=== PATIENT | female | born 1935 | race Caucasian/White ===

== ENCOUNTER 2018-01-24 21:33 | Emergency (ER) | payer MEDICARE, BC ==
[2018-01-24] MEDS ORDERED: SUCCINYLCHOLINE CHLORIDE 20 MG/ML SOL IV ONE ×2 (21:48→23:21)
[2018-01-24] MEDS ORDERED: ETOMIDATE 2 MG/ML SOL IV ONE ×2 (21:48→23:21)
[2018-01-24] MEDS ORDERED: SODIUM CHLORIDE 0.9% 1000ML 1,000 ML IV ONE (22:00)
[2018-01-24] MEDS ORDERED: MIDAZOLAM 2 MG/2 ML SOL ONE (22:07)
[2018-01-24] MEDS ORDERED: ROCURONIUM BROMIDE 10 MG/ML SOL IV ONE ×2 (22:09→23:21)
[2018-01-24] MEDS ORDERED: ROCURONIUM BROMIDE 10 MG/ML SOL IV PRN (22:15)
[2018-01-24 22:33] LABS: BASOPHILS % (AUTO) 1 % (0-3); EOSINOPHILS % (AUTO) 0 % (0-9); HEMATOCRIT 38 % (35-47); HEMOGLOBIN 12.6 gm/dl (12.0-15.5); LYMPHOCYTES % (AUTO) 10.2 % (10-50); MEAN CORPUSCULAR HEMOGLOBIN 30.6 pg (27.0-32.0); MEAN CORPUSCULAR HGB CONC 33.6 gm/dl (32.0-36.0); MEAN CORPUSCULAR VOLUME 91 fL (81-99); MONOCYTES % (AUTO) 5.5 % (0-12); NEUTROPHILS % (AUTO) 83.5 % (37-80)
[2018-01-24 22:34] LABS: INR 1.1 (0.86-1.12)
[2018-01-24 22:35] LABS: ALT 21 IU/L (14-63); AST 21 IU/L (15-37); BILIRUBIN,TOTAL 0.3 mg/dl (0.2-1.0); BLOOD UREA NITROGEN 14 mg/dl (7-18); CALCIUM 8.6 mg/dl (8.5-10.1); CHLORIDE 100 mMol/L (98-107); CREATININE 1.16 mg/dl (0.60-1.00); GLOM FILT RATE 45 mL/min (>60); GLUCOSE 185 mg/dl (74-106); POTASSIUM 3.3 mMol/L (3.5-5.1); SODIUM 137 mMol/L (136-145); TOTAL PROTEIN 6.9 gm/dl (6.4-8.2)
[2018-01-24 22:36] LABS: ALBUMIN 3.3 gm/dl (3.4-5.0); ALKALINE PHOSPHATASE 78 IU/L (46-116); TROP I < 0.017 ng/ml (0.000-0.056)
[2018-01-24] MEDS ORDERED: MIDAZOLAM 2 MG/2 ML SOL IV ONE (23:21)
[2018-01-25 00:11] VITALS: BP 164/73; PULSE 101; RESP 17; O2SAT 100
== END 2018-01-24 22:45 | disposition short-term general hospital (02) | DRG 81 ==
LOC: ED 21:33
DX: R40.1 Stupor (principal); R56.9 Unspecified convulsions
CPT/HCPCS: 31500; 70450; 71045; 80053; 84484; 85025; 85610; 85730; 93005; 99291; J0330; J2250; A9270-GY; J3490

== ENCOUNTER 2018-08-27 13:25 | Emergency (ER) | payer OTHER, MEDICARE, BC ==
[2018-08-27] MEDS ORDERED: SODIUM CHLORIDE 0.9% 1000ML 1,000 ML IV ONE (13:37)
[2018-08-27] MEDS ORDERED: HYDROMORPHONE HCL 2 MG/ML SOL IV ONE (13:38)
[2018-08-27] MEDS ORDERED: HYDROMORPHONE 1 MG/ML SYRINGE ONE (13:44)
[2018-08-27 13:58] LABS: BASOPHILS % (AUTO) 1 % (0-3); EOSINOPHILS % (AUTO) 2 % (0-9); HEMATOCRIT 37 % (35-47); HEMOGLOBIN 11.9 gm/dl (12.0-15.5); LYMPHOCYTES % (AUTO) 32.6 % (10-50); MEAN CORPUSCULAR HEMOGLOBIN 29.8 pg (27.0-32.0); MEAN CORPUSCULAR HGB CONC 32.5 gm/dl (32.0-36.0); MEAN CORPUSCULAR VOLUME 92 fL (81-99); MONOCYTES % (AUTO) 8.1 % (0-12); NEUTROPHILS % (AUTO) 56.6 % (37-80)
[2018-08-27 14:03] LABS: CALCIUM 8.7 mg/dl (8.5-10.1); CARBON DIOXIDE 29.4 mEq/L (21-32); CREATININE 0.97 mg/dl (0.60-1.00); POTASSIUM 3.4 mMol/L (3.5-5.1)
[2018-08-27 14:04] LABS: INR 1.02 (0.86-1.12)
[2018-08-27] MEDS ORDERED: ONDANSETRON HCL 4 MG/2 ML SOL ONE (14:42)
[2018-08-27] MEDS ORDERED: ONDANSETRON HCL 4 MG/2 ML SOL IV ONE (14:48)
[2018-08-27 15:20] VITALS: TEMP 98.2
[2018-08-27 15:53] LABS: ABO O
[2018-08-27 15:54] LABS: ANTIBODY SCREEN Negative; RH TYPE Negative
[2018-08-27 19:22] VITALS: BP 140/65; PULSE 91; RESP 18; O2SAT 95
== END 2018-08-27 15:50 | disposition short-term general hospital (02) | DRG 534 ==
LOC: ED 13:25
DX: S72.91XA Unspecified fracture of right femur, initial encounter for closed fracture (principal); W19.XXXA Unspecified fall, initial encounter; Y93.89 Activity, other specified; Y92.89 Other specified places as the place of occurrence of the external cause; Y99.9 Unspecified external cause status; R00.0 Tachycardia, unspecified; Z98.890 Other specified postprocedural states
CPT/HCPCS: 36415; 71045; 73501; 73560; 80048; 85025; 85610; 86850; 86900; 86901; 93005; 96365; 96374; 96375; 99284; 99285; G0390; J2405; J1170

== ENCOUNTER 2018-08-31 10:05 | Inpatient (IN) | payer OTHER, MEDICARE, BC ==
[2018-08-31] MEDS: APAP/HYDROCODONE 1 EACH TABLET PO PRN ×3 (13:37→23:57)
[2018-08-31] MEDS: LEVETIRACETAM 250 MG TAB PO SCH (22:12)
[2018-09-01] MEDS: APAP/HYDROCODONE 1 EACH TABLET PO PRN ×4 (05:31→20:19)
[2018-09-01] MEDS ORDERED: MAGNESIUM HYDROXIDE 30 ML SUS PO PRN (08:21)
[2018-09-01] MEDS: LEVETIRACETAM 250 MG TAB PO SCH ×2 (09:11→20:20)
[2018-09-01] MEDS: ENOXAPARIN 40 MG SOL SC SCH (09:11)
[2018-09-01] MEDS: POLYETHYLENE GLYCOL 17 GM/1 TBS PDS PO SCH (12:19)
[2018-09-02] MEDS: APAP/HYDROCODONE 1 EACH TABLET PO PRN ×4 (02:03→20:30)
[2018-09-02] MEDS: LEVETIRACETAM 250 MG TAB PO SCH ×2 (08:46→20:05)
[2018-09-02] MEDS: ENOXAPARIN 40 MG SOL SC SCH (08:47)
[2018-09-02] MEDS: POLYETHYLENE GLYCOL 17 GM/1 TBS PDS PO SCH (08:47)
[2018-09-03] MEDS: ACETAMINOPHEN 325 MG PO PRN ×4 (02:14→20:49)
[2018-09-03] MEDS: LEVETIRACETAM 250 MG TAB PO SCH ×2 (09:33→20:49)
[2018-09-03] MEDS: POLYETHYLENE GLYCOL 17 GM/1 TBS PDS PO SCH ×2 (09:33→09:38)
[2018-09-03] MEDS: ENOXAPARIN 40 MG SOL SC SCH (09:34)
[2018-09-03] MEDS: APAP/HYDROCODONE 1 EACH TABLET PO PRN (23:47)
[2018-09-04] MEDS: POLYETHYLENE GLYCOL 17 GM/1 TBS PDS PO SCH (09:29)
[2018-09-04] MEDS: LEVETIRACETAM 250 MG TAB PO SCH ×2 (09:29→20:24)
[2018-09-04] MEDS: ENOXAPARIN 40 MG SOL SC SCH (09:33)
[2018-09-04] MEDS: ACETAMINOPHEN 325 MG PO PRN (11:52)
[2018-09-04] MEDS: APAP/HYDROCODONE 1 EACH TABLET PO PRN (13:34)
[2018-09-05] MEDS: APAP/HYDROCODONE 1 EACH TABLET PO PRN ×2 (01:46→20:35)
[2018-09-05] MEDS: ACETAMINOPHEN 325 MG PO PRN ×3 (07:26→18:22)
[2018-09-05] MEDS: ENOXAPARIN 40 MG SOL SC SCH (09:27)
[2018-09-05] MEDS: LEVETIRACETAM 250 MG TAB PO SCH ×2 (09:28→20:35)
[2018-09-05] MEDS: POLYETHYLENE GLYCOL 17 GM/1 TBS PDS PO SCH (09:28)
[2018-09-06] MEDS: LEVETIRACETAM 250 MG TAB PO SCH ×2 (08:18→20:04)
[2018-09-06] MEDS: APAP/HYDROCODONE 1 EACH TABLET PO PRN ×3 (08:18→20:04)
[2018-09-06] MEDS: POLYETHYLENE GLYCOL 17 GM/1 TBS PDS PO SCH (08:20)
[2018-09-06] MEDS: ENOXAPARIN 40 MG SOL SC SCH (08:45)
[2018-09-07] MEDS: POLYETHYLENE GLYCOL 17 GM/1 TBS PDS PO SCH (10:13)
[2018-09-07] MEDS: LEVETIRACETAM 250 MG TAB PO SCH ×2 (10:13→21:25)
[2018-09-07] MEDS: ENOXAPARIN 40 MG SOL SC SCH (10:16)
[2018-09-07] MEDS: APAP/HYDROCODONE 1 EACH TABLET PO PRN ×2 (12:23→21:24)
[2018-09-08] MEDS: POLYETHYLENE GLYCOL 17 GM/1 TBS PDS PO SCH (08:27)
[2018-09-08] MEDS: ENOXAPARIN 40 MG SOL SC SCH (08:30)
[2018-09-08] MEDS: LEVETIRACETAM 250 MG TAB PO SCH ×2 (08:30→20:34)
[2018-09-08] MEDS: ACETAMINOPHEN 325 MG PO PRN ×2 (13:44→20:34)
[2018-09-09 08:09] VITALS: RESP 16
[2018-09-09] MEDS: LEVETIRACETAM 250 MG TAB PO SCH ×2 (08:42→21:05)
[2018-09-09] MEDS: ENOXAPARIN 40 MG SOL SC SCH (08:42)
[2018-09-09] MEDS: POLYETHYLENE GLYCOL 17 GM/1 TBS PDS PO SCH (08:45)
[2018-09-09] MEDS: ACETAMINOPHEN 325 MG PO PRN (21:05)
[2018-09-10] MEDS: POLYETHYLENE GLYCOL 17 GM/1 TBS PDS PO SCH (09:18)
[2018-09-10] MEDS: LEVETIRACETAM 250 MG TAB PO SCH (09:18)
[2018-09-10 09:20] VITALS: BP 148/69; PULSE 55; TEMP 97.5; O2SAT 97
[2018-09-10] MEDS: ENOXAPARIN 40 MG SOL SC SCH (11:04)
== END 2018-09-10 11:35 | disposition home or self-care (01) | DRG 561 ==
LOC: ACUTE CARE 12:17
PROVIDERS: ADMIT Family Medicine; ATTEND Family Medicine
PROC: F01ZBZZ Bed Mobility Assessment (ICD-10-PCS; principal; 2018-08-31)
PROC: F01 Physical Rehabilitation and Diagnostic Audiology, Rehabilitation, Motor and/or Nerve Function Assessment (ICD-10-PCS; 2018-08-31)
PROC: F02Z0ZZ Bathing/Showering Assessment (ICD-10-PCS; 2018-09-01)
PROC: F02Z3ZZ Grooming/Personal Hygiene Assessment (ICD-10-PCS; 2018-09-01)
DX: S72.001D Fracture of unspecified part of neck of right femur, subsequent encounter for closed fracture with routine healing (principal); Z98.890 Other specified postprocedural states; K59.00 Constipation, unspecified
CPT/HCPCS: J1650; A9270-GY